=== PATIENT | male | born 1965 | race Caucasian/White ===

== ENCOUNTER 2017-06-24 12:22 | Emergency (ER) | payer BC ==
[2017-06-24] MEDS ORDERED: Lidocaine 1% 50 ML MDV INJECT ONE (12:53)
[2017-06-24] MEDS ORDERED: Midazolam 1 MG/ML 2 ML SDV IVPUSH ONE (12:54)
[2017-06-24] MEDS ORDERED: Sodium Chloride 0.9% 10 ML Syringe FLUSH PRN (12:54)
[2017-06-24] MEDS ORDERED: fentaNYL 100 MCG/2 ML SDV IVPUSH ONE (12:54)
--- NOTE | 2017-06-24 13:38 | EDM.PDOC ---
ED HPI GENERAL MEDICAL PROBLEM - General Chief Complaint: ENT Problem Stated Complaint: NOSE INJURY Time Seen by Provider: 06/24/17 12:48 Source of Information: Reports: Patient History Limitations: Reports: No Limitations - History of Present Illness INITIAL COMMENTS - FREE TEXT/NARRATIVE: 51-year-old male presents for evaluation and treatment of a laceration to the nose. Injury occurred about 11 AM. Patient reports he was putting up some lights when he walked into a ceiling panel. Has a laceration to the nasal bridge and along the left side of the nose. approximately 5 cm. Bleeding controlled upon arrival. Reports a burning pain to the nose. No numbness or tingling. Unsure of last tetanus. Nose Pain Score (Numeric/FACES): 2 - Related Data Allergies Allergy/AdvReac Type Severity Reaction Status Date / Time No Known Allergies Allergy Verified 06/24/17 12:33 Home Meds: Home Meds Doxycycline [Vibramycin] 100 mg PO BID #20 cap 06/24/17 [Rx] Past Medical History - Past Surgical History HEENT Surgical History: Reports: Cataract Surgery, Detached Retina Social & Family History - Tobacco Use Smoking Status *Q: Never Smoker Second Hand Smoke Exposure: No - Caffeine Use Caffeine Use: Reports: Coffee, Soda - Recreational Drug Use Recreational Drug Use: No ED ROS ENT - Review of Systems Review Of Systems: See Below HEENT: Reports: Nosebleed, Other (facial pain) Skin: Reports: Wound (5cm ) Neurological: Denies: Numbness, Tingling ED EXAM, ENT - Physical Exam Exam: See Below Exam Limited By: No Limitations General Appearance: Alert, WD/WN, Anxious, Mild Distress Eye Exam: Bilateral Eye: Normal Inspection, PERRL Ears: Normal External Exam Nose: Nasal Deformity, Dried Blood. No: Septal Hematoma Mouth/Throat: Normal Inspection, Normal Oropharynx Head: Facial Lacerations, Other (5cm laceration to the anterior and left lateral nose) Respiratory/Chest: No Respiratory Distress Neurological: Alert, Oriented, Normal Cognition Psychiatric: Normal Affect, Normal Mood Skin: Warm, Dry, Normal Color ED ENT PROCEDURES - Laceration/Wound Repair Face Lac/wound length in cm: 5 Appearance: Linear Distal NVT: Neuro & Vascular Intact, No Tendon Injury Anesthetic Type: Local Local Anesthesia - Lidocaine (Xylocaine): 1% Plain Local Anesthetic Volume: Other (6cc) Skin Prep: Chlorhexidine (Hibiciens), Saline, Sterile Drape Suture Size: other (5-0) # of Sutures: 22 (7 4-0 and 15 5-0) Suture Type: Nylon, Interrupted, Simple Sterile Dressing Applied: Nurse Tetanus Status Addressed: Yes Complications: None Course - Vital Signs Last Recorded V/S: Last Vital Signs Temp 35.7 C 06/24/17 12:28 Pulse 72 06/24/17 15:54 Resp 18 06/24/17 15:54 BP 109/95 H 06/24/17 15:54 Pulse Ox 98 06/24/17 15:54 - Orders/Labs/Meds Orders: Active Orders 24 hr Category Date Time Status Peripheral IV Care [RC] . DIRECTED Care 06/24/17 12:55 Active Vaccines to be Administered [RC] PER UNIT ROUTINE Care 06/24/17 15:15 Ordered Peripheral IV Insertion Adult [OM.PC] Routine Oth 06/24/17 12:53 Ordered Meds: Medications Discontinued Medications Generic Name Dose Route Start Last Admin Trade Name Juarez PRN Reason Stop Dose Admin Diphtheria/Tetanus/Acell Pertussis 0.5 ml 06/24/17 15:14 06/24/17 15:22 Adacel IM 06/24/17 15:15 0.5 ml .ONCE ONE Administration Diphtheria/Tetanus/Acell Pertussis Confirm 06/24/17 15:22 06/24/17 15:31 Adacel Administered 06/24/17 15:23 Not Given Dose 0.5 ml .ROUTE .STK-MED ONE Fentanyl 50 mcg 06/24/17 12:54 06/24/17 13:08 Sublimaze IVPUSH 06/24/17 12:55 50 mcg ONETIME ONE Administration Fentanyl Confirm 06/24/17 13:52 06/24/17 15:09 Sublimaze Administered 06/24/17 13:53 Not Given Dose 100 mcg .ROUTE .STK-MED ONE Fentanyl 50 mcg 06/24/17 15:09 06/24/17 13:35 Sublimaze IVPUSH 06/24/17 15:10 50 mcg ONETIME STA Administration Fentanyl 50 mcg 06/24/17 15:30 06/24/17 15:31 Sublimaze IVPUSH 06/24/17 15:31 50 mcg ONETIME STA Administration Lidocaine HCl 50 ml 06/24/17 12:53 06/24/17 13:45 Xylocaine 1% INJECT 06/24/17 12:54 50 ml ONETIME ONE Administration Midazolam HCl 2 mg 06/24/17 12:54 06/24/17 13:31 Versed 1 Mg/Ml IVPUSH 06/24/17 12:55 2 mg ONETIME ONE Administration Midazolam HCl Confirm 06/24/17 13:52 06/24/17 15:09 Versed 1 Mg/Ml Administered 06/24/17 13:53 Not Given Dose 2 mg .ROUTE .STK-MED ONE Sodium Chloride 10 ml 06/24/17 12:54 06/24/17 13:09 Saline Flush FLUSH 10 ml ASDIRECTED PRN Administration Keep Vein Open - Re-Assessments/Exams Free Text/Narrative Re-Assessment/Exam: 06/24/17 15:[address] Hall to come and see the patient. He has Seen and evaluated the patient. We discussed laceration repair. Dr. Hall recommended using a combination of 4-0 Ethilon and 5-0 Ethilon. Advised against subcutaneous sutures as this will likely cause worsening deformity to the area. Recommend antibiotics. We will update his tetanus. I placed 22 sutures total to the nose. Patient tolerated the procedure relatively well. Difficulty obtaining adequate anesthesia with the lidocaine. I did give him a combination of fentanyl and Versed to help with the pain and relaxation. The laceration came together well. He had 7 sutures of 4-0 Ethilon and 15 sutures of 5-0 Ethilon. The color to his nose improved afterwards. Reports soreness to the nose. Will discharge him home with doxycycline twice a day. Discharge instructions as documented. Departure - Departure Time of Disposition: 15:04 Disposition: Home, Self-Care 01 Condition: Fair Clinical Impression: Laceration - Discharge Information Prescriptions: Doxycycline [Vibramycin] 100 mg PO BID #20 cap Instructions: Laceration Care, Adult Referrals: PCP,None [Primary Care Provider] - Anuja Dove PA-C [[employer]] - Forms: ED Department Discharge Additional Instructions: Wash the wound with gentle soap and water twice a day. Apply Neosporin or bacitracin to the wound. Keep the wound covered when you're going to be in areas where it could become dirty. Otherwise open to air. Doxycycline 1 tab twice a day for 10 days. Take this medication with food. Avoid the sun as this medication as does cause photosensitivity. Monitor for signs of infection such as increased swelling, pus or redness. Present to the clinic or the ER should these develop. Have the sutures removed in [address] [facility] clinic located on the side of the hospital is open 8 AM to 5 PM Wednesday through Wednesday and will remove the sutures for free. Recommend Anuja Dove. Call [phone] to schedule with her. Please return to the ER if your symptoms change or worsen. - My Orders Last 24 Hours: My Active Orders 06/24/17 12:53 Peripheral IV Insertion Adult [OM.PC] Routine 06/24/17 12:55 Peripheral IV Care [RC] . DIRECTED 06/24/17 15:15 Vaccines to be Administered [RC] PER UNIT ROUTINE - Assessment/Plan Last 24 Hours: My Active Orders 06/24/17 12:53 Peripheral IV Insertion Adult [OM.PC] Routine 06/24/17 12:55 Peripheral IV Care [RC] . DIRECTED 06/24/17 15:15 Vaccines to be Administered [RC] PER UNIT ROUTINE
[2017-06-24] MEDS ORDERED: Midazolam 1 MG/ML 2 ML SDV ONE (13:52)
[2017-06-24] MEDS ORDERED: fentaNYL 100 MCG/2 ML SDV ONE (13:52)
[2017-06-24] MEDS ORDERED: fentaNYL 100 MCG/2 ML SDV IVPUSH STA ×2 (15:09→15:30)
[2017-06-24] MEDS ORDERED: Diphtheria,Pertussis(Acell),Tetanus Vaccine 0.5 ML SDV IM ONE (15:14)
[2017-06-24] MEDS ORDERED: Diphtheria,Pertussis(Acell),Tetanus Vaccine 0.5 ML SDV ONE (15:22)
== END 2017-06-24 15:50 | disposition home or self-care (01) ==
LOC: JD.ED 12:22
DX: S01.21XA Laceration without foreign body of nose, initial encounter (principal); Z79.899 Other long term (current) drug therapy; Z23 Encounter for immunization; W26.8XXA Contact with other sharp object(s), not elsewhere classified, initial encounter
CPT/HCPCS: 12013; 90471; 90715; 96374; 96375; 96376; 99283; J2250; J3010; J7050; 99284-25

== ENCOUNTER 2020-02-26 08:11 | Day surgery (SDC) | payer BC ==
[~2020-02-26 08:11] MED LIST: Acetaminophen 325 MG Tab PO SCH; Ketamine 500 mg/10 ML MDV ONE; Ketorolac 30 MG/ML SDV ONE; Lactated Ringers 1,000 ML IV SCH; Lactated Ringers 2,000 ML ONE; Lidocaine 1% 4 ML ONE; Lidocaine 1%/Sod Bicarbonate in NS 8.4% 1 ML Syringe IDERM PRN; Midazolam 1 MG/ML 2 ML SDV ONE; Morphine 8 MG, EPINEPHrine 0.3 MG, Cefuroxime 750 MG, Ketorolac 30 MG, Sodium Chloride ... PRN; Ondansetron 4 MG/2 ML SDV ONE; Pregabalin 25 MG Cap PO SCH; Propofol 200 MG/20 ML SDV ONE; Sodium Chloride 0.9% 10 ML Syringe FLUSH PRN; fentaNYL 100 MCG/2 ML SDV ONE; oxyCODONE ER 10 MG TAB.ER PO SCH
--- NOTE | 2020-02-26 09:20 | PCM.PREANE ---
Preanesthetic Assessment - Procedure Proposed Procedure: Right Total Hip Arthroplasty - Anesthesia/Transfusion/Family Hx Anesthesia History: Prior Anesthesia Reaction Type of Anesthesia Reaction: Excessive Nausea/Vomiting (Eye surgery) Family History of Anesthesia Reaction: No - Review of Systems General: No Symptoms Pulmonary: No Symptoms Cardiovascular: No Symptoms Gastrointestinal: No Symptoms Neurological: Pre-Existing Deficit (Chronic back pain, epidural steroid injections a couple of times a year for management. Degenerative Disc Disease. Denies numbness/tingling lower extremities. Worse on right side due to hip pain. ) Other: Reports: None - Physical Assessment NPO Status Date: 02/25/20 NPO Status Time: 21:30 Vital Signs: Last Vital Signs Temp 36.2 C 02/26/20 07:55 Pulse 55 L 02/26/20 07:55 Resp 16 02/26/20 07:55 BP 143/95 H 02/26/20 07:55 Pulse Ox 96 02/26/20 07:55 Height: 1.8 m Weight: 102.965 kg ASA Class: 2 Mental Status: Alert & Oriented x3 Airway Class: Mallampati = 2 Dentition: Reports: Normal Dentition Thyro-Mental Finger Breadths: 3 Mouth Opening Finger Breadths: 3 ROM/Head Extension: Full Lungs: Clear to Auscultation, Normal Respiratory Effort Cardiovascular: Regular Rhythm, Bradycardia - Lab Values: Laboratory Last Values MRSA (PCR) Negative 02/14/20 14:21 - Allergies Allergies/Adverse Reactions: Allergies Allergy/AdvReac Type Severity Reaction Status Date / Time No Known Allergies Allergy Verified 02/25/20 09:10 - Anesthesia Plan Pre-Op Medication Ordered: Anxiolytic, Other (Scopalamine Patch) - Acknowledgements Anesthesia Type Planned: Spinal Pt an Appropriate Candidate for the Planned Anesthesia: Yes Alternatives and Risks of Anesthesia Discussed w Pt/Guardian: Yes Pt/Guardian Understands and Agrees with Anesthesia Plan: Yes PreAnesthesia Questionnaire HEENT History: Reports: Impaired Vision, Other (See Below) Other HEENT History: wears glasses/contacts Cardiovascular History: Reports: None Respiratory History: Reports: None Gastrointestinal History: Reports: None Genitourinary History: Reports: None CRANE HOOKER History: Reports: None Musculoskeletal History: Reports: Other (See Below) Other Musculoskeletal History: right hip degenerative joint disease, foot pain, hamstring tightness, low back pain, right hip and knee pain Neurological History: Reports: None Psychiatric History: Reports: None Endocrine/Metabolic History: Reports: None Hematologic History: Reports: None Immunologic History: Reports: None - Infectious Disease History Infectious Disease History: Reports: None - Past Surgical History Head Surgeries/Procedures: Reports: None HEENT Surgical History: Reports: Cataract Surgery, Detached Retina Cardiovascular Surgical History: Reports: None Respiratory Surgical History: Reports: None GI Surgical History: Reports: Colonoscopy Female Surgical History: Reports: None Male Surgical History: Reports: None Endocrine Surgical History: Reports: None Neurological Surgical History: Reports: None Musculoskeletal Surgical History: Reports: None Oncologic Surgical History: Reports: None Dermatological Surgical History: Reports: None - SUBSTANCE USE Tobacco Use Status *Q: Former Tobacco User Days Per Week of Alcohol Use: 7 Number of Drinks Per Day: 1 Total Drinks Per Week: 7 Recreational Drug Use History: No - HOME MEDS Home Medications: Home Meds Cholecalciferol (Vitamin D3) [Vitamin D3] 5,000 unit PO DAILY 02/25/20 [History] Multivitamin [Daily Multiple Vitamin] 1 tab PO DAILY 02/25/20 [History] Aspirin [Aspirin EC] 325 mg PO BID #70 tab 02/26/20 [Rx] Cyclobenzaprine [Flexeril] 10 mg PO BID PRN #20 tab 02/26/20 [Rx] oxyCODONE 5 - 10 mg PO Q4H PRN #40 tab 02/26/20 [Rx] - CURRENT (IN HOUSE) MEDS Current Meds: Current Medications Acetaminophen (Tylenol) 975 mg PO ONETIME LUISITO Stop: 02/26/20 12:00 Last Admin: 02/26/20 08:26 Dose: 975 mg Documented by: Morphine Sulfate 8 mg/Epinephrine HCl 0.3 mg/Cefuroxime Sodium 750 mg/Ketorolac Tromethamine 30 mg/Sodium Chloride 7.9 ml 0 mg .XX ASDIRECTED PRN PRN Reason: Pain Stop: 02/26/20 12:00 Lactated Ringer's (Ringers, Lactated) 1,000 mls @ 125 mls/hr IV ASDIRECTED LUISITO Stop: 02/26/20 23:00 Last Admin: 02/26/20 08:20 Dose: 125 mls/hr Documented by: Lidocaine/Sodium Bicarbonate (Buffered Lidocaine 1% In Ns 8.4%) 0.25 ml IDERM ONETIME PRN PRN Reason: Prior to IV Start Stop: 02/26/20 18:00 Last Admin: 02/26/20 08:19 Dose: 0.25 ml Documented by: Oxycodone HCl (Oxycontin) 10 mg PO ONETIME LUISITO Stop: 02/26/20 12:00 Last Admin: 02/26/20 08:26 Dose: 10 mg Documented by: Pregabalin (Lyrica) 50 mg PO ONETIME LUISITO Stop: 02/26/20 12:00 Last Admin: 02/26/20 08:26 Dose: 50 mg Documented by: Scopolamine (Transderm-Scop) 1.5 mg TOP ONETIME ONE Stop: 02/26/20 09:14 Sodium Chloride (Saline Flush) 10 ml FLUSH ASDIRECTED PRN PRN Reason: Keep Vein Open Stop: 02/26/20 18:00 Discontinued Medications Bupivacaine HCl (Sensorcaine-Mpf 0.25%) Confirm Administered Dose 30 ml .ROUTE .STK-MED ONE Stop: 02/26/20 08:26 Fentanyl (Sublimaze) Confirm Administered Dose 100 mcg .ROUTE .STK-MED ONE Stop: 02/26/20 07:49 Lidocaine HCl (Xylocaine-Mpf 1%) Confirm Administered Dose 4 mls @ as directed .ROUTE .STK-MED ONE Stop: 02/26/20 07:48 Lactated Ringer's (Ringers, Lactated) Confirm Administered Dose 2,000 mls @ as directed .ROUTE .STK-MED ONE Stop: 02/26/20 07:48 Ketamine HCl (Ketalar) Confirm Administered Dose 500 mg .ROUTE .STK-MED ONE Stop: 02/26/20 07:50 Ketorolac Tromethamine (Toradol) Confirm Administered Dose 30 mg .ROUTE .STK-MED ONE Stop: 02/26/20 07:48 Midazolam HCl (Versed 1 Mg/Ml) Confirm Administered Dose 2 mg .ROUTE .STK-MED ONE Stop: 02/26/20 07:50 Miscellaneous Medication (Phenylephrine 1 Mg/10 Ml-Ns) Confirm Administered Dose 1 mg .ROUTE .STK-MED ONE Stop: 02/26/20 07:48 Ondansetron HCl (Zofran) Confirm Administered Dose 4 mg .ROUTE .STK-MED ONE Stop: 02/26/20 07:48 Propofol (Diprivan 20 Ml) Confirm Administered Dose 400 mg .ROUTE .STK-MED ONE Stop: 02/26/20 07:48 Tranexamic Acid (Cyklokapron) Confirm Administered Dose 1,000 mg .ROUTE .STK-MED ONE Stop: 02/26/20 08:26 Vancomycin HCl (Vancomycin) Confirm Administered Dose 1 gm .ROUTE .STK-MED ONE Stop: 02/26/20 08:26
[2020-02-26] MEDS ORDERED: Scopolamine 1.5 MG Transdermal Patch TOP ONE (10:00)
[2020-02-26] MEDS ORDERED: diphenhydrAMINE 50 MG/ML SDV IVPUSH PRN (10:02)
[2020-02-26] MEDS ORDERED: fentaNYL 100 MCG/2 ML SDV IVPUSH PRN (10:02)
[2020-02-26] MEDS ORDERED: ePHEDrine 50 MG/ML SDV IVPUSH PRN (10:02)
[2020-02-26] MEDS ORDERED: Ondansetron 4 MG/2 ML SDV IVPUSH PRN (10:02)
[2020-02-26] MEDS ORDERED: HYDROmorphone 0.5 MG/0.5 ML Syringe IVPUSH PRN (10:03)
[2020-02-26] MEDS ORDERED: ePHEDrine 50 MG/ML SDV ONE (10:14)
[2020-02-26] MEDS: Morphine 8 MG, EPINEPHrine 0.3 MG, Cefuroxime 750 MG, Ketorolac 30 MG, Sodium Chloride ... PRN ×10 (10:19→10:46)
[2020-02-26] MEDS: Bupivacaine 0.25% 10 ML SDV ONE ×2 (10:19→10:44)
[2020-02-26] MEDS: Vancomycin 1 GM SDV ONE ×2 (10:20→10:48)
[2020-02-26] MEDS ORDERED: Propofol 200 MG/20 ML SDV ONE (10:38)
--- NOTE | 2020-02-26 11:22 | PCM.POSTAN ---
POST ANESTHESIA ASSESSMENT - MENTAL STATUS Mental Status: Alert - VITAL SIGNS Vital Signs: Last Vital Signs Temp 97.9 02/26/20 1115 Pulse 60 02/26/20 1115 Resp 10 02/26/20 1115 BP 97/68 02/26/20 1115 Pulse Ox 96% 02/26/20 1115 - RESPIRATORY Respiratory Status: Respiratory Rate WNL, Airway Patent, O2 Saturation Stable, Supplemental Oxygen - CARDIOVASCULAR CV Status: Pulse Rate WNL, Blood Pressure Stable - GASTROINTESTINAL GI Status: No Symptoms - POST OP HYDRATION Hydration Status: Adequate & Stable
[2020-02-26] MEDS ORDERED: oxyCODONE 5 MG Tab PO PRN (11:47)
[2020-02-26] MEDS ORDERED: Cyclobenzaprine 10 MG Tab PO PRN (12:07)
--- NOTE | 2020-02-26 13:40 | PCM48HPAN ---
Post Anesthesia Note - EVALUATION WITHIN 48HRS OF ANESTHETIC Vital Signs in Normal Range: Yes Patient Participated in Evaluation: Yes Respiratory Function Stable: Yes Airway Patent: Yes Cardiovascular Function Stable: Yes Hydration Status Stable: Yes Pain Control Satisfactory: Yes Nausea and Vomiting Control Satisfactory: Yes Mental Status Recovered: Yes Vital Signs: Last Vital Signs Temp 36.7 C 02/26/20 12:15 Pulse 62 02/26/20 13:00 Resp 16 02/26/20 13:00 BP 120/75 02/26/20 13:00 Pulse Ox 97 02/26/20 13:00
--- NOTE | 2020-02-26 14:13 | CR ---
PROCEDURE INFORMATION: Exam: XR Pelvis Exam date and time: 02/26/2020 11:12 AM Age: 54 years old Clinical indication: Device placement; Other: Right hip replacement; Prior surgery; Surgery date: Post-operative (0-2 days) TECHNIQUE: Imaging protocol: XR pelvis. Views: 1 or 2 view. COMPARISON: FL Pelvis 1V or 2V 10/18/2019 10:40 AM FINDINGS: Bones/joints: Status post right total hip replacement without evidence of complications. Soft tissues: There are no soft tissue masses or fluid collections. IMPRESSION: Status post right total hip replacement without evidence of complications. Thank you for allowing us to participate in the care of your patient. Dictated and Authenticated by: Jorje Yarbrough DO 02/26/2020 2:33 PM Central Time ([place] & [place]) TESSIE
--- NOTE | 2020-03-08 13:10 | PCM.OPNOTE ---
- General Post-Op/Procedure Note Date of Surgery/Procedure: 02/26/20 Operative Procedure(s): right total hip arthroplasty Pre Op Diagnosis: right hip osteoarthrosis Post-Op Diagnosis: Same Anesthesia Technique: Local, MAC, Spinal Primary Surgeon: Martinez Miranda Anesthesia Provider: Maria C Cespedes Dive Superintendent: Pricilla Rivera Dive Superintendent: Zohra Tomlinson EBL in mLs: 150 Complications: None Condition: Good Free Text/Narrative:: 58 cup 4 stem 28+0 MDM
--- NOTE | 2020-03-08 13:49 | OR ---
DATE OF OPERATION: 02/26/2020 SURGEON: Martinez Miranda MD OPERATION PERFORMED: Right total hip arthroplasty. PREOPERATIVE DIAGNOSIS: Right hip osteoarthrosis. POSTOPERATIVE DIAGNOSIS: Right hip osteoarthrosis. ANESTHESIA: Local MAC with spinal. ANESTHESIA PROVIDER: Maria C Cespedes CRNA. ASSISTANTS: Pricilla Rivera PA-C and Zohra Tomlinson LPN. ESTIMATED BLOOD LOSS: 150 mL. COMPLICATIONS: None. CONDITION: Stable. IMPLANT: 1. Monroe size 58 mm solid Tritanium II acetabular cup. 2. Monroe size 28/42 MDM components +0. 3. Monroe size 4 Accolade II stem. DESCRIPTION OF PROCEDURE: The patient was identified in the preoperative holding area. Proper site was marked and identified by the surgeon. The patient was taken back to the operating theater, where after adequate anesthesia, the patient was placed in a left lateral decubitus position. Axillary roll was placed, pegs were then placed and they were well padded. The patient's gluteal fold was parallel to the floor. At this time, right hip was then sterilely prepped and draped in the usual sterile fashion. OR time-out was performed. The patient received 2 g IV Ancef. Standard posterior incision was made, centered over the greater trochanter. This was taken down to the IT band and gluteal fascia, which was incised along the incisional length. Charnley retractor was then placed and found to be in adequate position. Short external rotators were identified and takedown of short external rotators was done from the level of the piriformis down to the lesser trochanter. Hip was then dislocated and neck cut was completed and found to be adequate. Anterior and posterior acetabular retractors were then placed and circumferential removal of the labrum as well as any bony prominences were then done. Pulvinar was then resected. Starting with a 52 reamer, I was then able to ream up to a size 58, which was found to have adequate purchase. A 58 mm Tritanium II acetabular cup was then impacted in place and roughly 45 degrees of abduction and 20 to 30 degrees of anteversion. MDM liner was then impacted in place and was and found to be properly seated. At this time, attention was turned to the femur. Box chisel was used out laterally. Starter awl was placed down the canal. Starting with a 0 broach, I was able to broach up to a size 4 which was found to be rotationally and vertically stable. Trial neck at 127 degrees +0 implants were trialed. The patient had adequate religion of leg lengths and was stable throughout the range of motion. Bone hook was used to dislocate the trial implants. The size 4 Accolade II stem was then impacted in place and the 28 mm, +0 MDM components were constructed on the back table and impacted onto the femoral stem. Hip was then relocated and was stable throughout range of motion. A #5 Ethibond was used for closure of short external rotators and capsule. 1 L of pulse lavage irrigation with Ancef was irrigated through the hip along with Irrisept irrigation. Topical tranexamic acid and vancomycin powder were applied along with periarticular injection. A #2 barbed suture was used for closure of the IT band and gluteal fascia. A 2-0 Vicryl was used subcutaneously, Prineo was used for the skin. The patient tolerated the procedure well and sent to PACU in stable condition. MMODAL /[id number]
== END 2020-02-26 15:02 | disposition home or self-care (01) ==
LOC: JD.SDS 08:11 → EDSTATUS 09:15 → JD.SDS 15:02
PROVIDERS: ATTEND Orthopaedic Surgery
DX: M16.11 Unilateral primary osteoarthritis, right hip (principal); E78.00 Pure hypercholesterolemia, unspecified; Z98.890 Other specified postprocedural states; Z87.891 Personal history of nicotine dependence; Z79.899 Other long term (current) drug therapy; Z79.82 Long term (current) use of aspirin
CPT/HCPCS: 27130; 36415; 73501; 86850; 86900; 86901; 87641; 97110; 97116; 97161; 97165; 97530; A9270; C1776; J0171; J0697; J1885; J2001; J2250; J2270; J2405; J2704; J3010; J3370; J3490; J7120; 01214; J2370

== ENCOUNTER 2020-03-23 12:09 | Emergency (ER) | payer BC ==
--- NOTE | 2020-03-23 12:36 | EDM.PDOC ---
ED HPI GENERAL MEDICAL PROBLEM - General Chief Complaint: Genitourinary Problem Stated Complaint: UNABLE TO URINATE Time Seen by Provider: 03/23/20 12:26 - History of Present Illness INITIAL COMMENTS - FREE TEXT/NARRATIVE: 54-year-old male presents to the emergency room with urinary difficulties. Late last night he developed some burning and frequency with urination. This is progressively getting worse now he just goes very small amounts very frequently and it is very uncomfortable he does not feel like he empties all the way. He has not had any fevers or chills she is not had any nausea or vomiting. Patient thought he was developing some constipation but had a large BM yesterday. Patient does not have a history of recurrent UTIs.. The patient had a hip replacement done little over a month ago however did not have a Fisher catheter placed. - Related Data Allergies Allergy/AdvReac Type Severity Reaction Status Date / Time No Known Allergies Allergy Verified 03/23/20 12:18 Home Meds: Home Meds Cholecalciferol (Vitamin D3) [Vitamin D3] 5,000 unit PO DAILY 02/25/20 [History] Multivitamin [Daily Multiple Vitamin] 1 tab PO DAILY 02/25/20 [History] Aspirin [Aspirin EC] 325 mg PO BID #70 tab 02/26/20 [Rx] Cefdinir [Omnicef] 300 mg PO BID #14 cap 03/23/20 [Rx] Past Medical History HEENT History: Reports: Impaired Vision, Other (See Below) Other HEENT History: wears glasses/contacts Cardiovascular History: Reports: None Respiratory History: Reports: None Gastrointestinal History: Reports: None Genitourinary History: Reports: None [employer] History: Reports: None Musculoskeletal History: Reports: Other (See Below) Other Musculoskeletal History: right hip degenerative joint disease, foot pain, hamstring tightness, low back pain, right hip and knee pain Neurological History: Reports: None Psychiatric History: Reports: None Endocrine/Metabolic History: Reports: None Hematologic History: Reports: None Immunologic History: Reports: None - Infectious Disease History Infectious Disease History: Reports: None - Past Surgical History Head Surgeries/Procedures: Reports: None HEENT Surgical History: Reports: Cataract Surgery, Detached Retina Cardiovascular Surgical History: Reports: None Respiratory Surgical History: Reports: None GI Surgical History: Reports: Colonoscopy Male Surgical History: Reports: None Endocrine Surgical History: Reports: None Neurological Surgical History: Reports: None Musculoskeletal Surgical History: Reports: Hip Replacement Other Musculoskeletal Surgeries/Procedures:: right hip Oncologic Surgical History: Reports: None Dermatological Surgical History: Reports: None Social & Family History - Tobacco Use Tobacco Use Status *Q: Former Tobacco User Used Tobacco, but Quit: Yes Month/Year Tobacco Last Used: 8 years ago - Caffeine Use Caffeine Use: Reports: None - Recreational Drug Use Recreational Drug Use: No ED ROS GENERAL - Review of Systems Review Of Systems: See Below Constitutional: Reports: No Symptoms. Denies: Fever, Chills Respiratory: Reports: No Symptoms Cardiovascular: Reports: No Symptoms Endocrine: Reports: No Symptoms GI/Abdominal: Reports: No Symptoms : Reports: Dysuria, Other (Some midline low back pain but this is chronic). Denies: Flank Pain Musculoskeletal: Reports: Back Pain ED EXAM, RENAL/ - Physical Exam Exam: See Below Exam Limited By: No Limitations General Appearance: Alert, No Apparent Distress Head: Atraumatic, Normocephalic Neck: Normal Inspection, Supple, Non-Tender, Full Range of Motion Respiratory/Chest: No Respiratory Distress, Lungs Clear, Normal Breath Sounds Cardiovascular: Regular Rate, Rhythm, No Edema, No Murmur GI/Abdominal: Normal Bowel Sounds, Soft, Non-Tender Back Exam: Other (He has some vague lower back pain in the midline the patient has chronic back pain and this is not much different). No: CVA Tenderness (L), CVA Tenderness (R) Neurological: Alert, Oriented, Normal Cognition Course - Vital Signs Last Recorded V/S: Last Vital Signs Temp 36.9 C 03/23/20 12:16 Pulse 109 H 03/23/20 12:16 Resp 16 03/23/20 12:16 BP 164/95 H 03/23/20 12:16 Pulse Ox 96 03/23/20 12:16 - Orders/Labs/Meds Orders: Active Orders 24 hr Category Date Time Status CULTURE URINE [RM] Stat Lab 03/23/20 12:15 Received Labs: Laboratory Tests 03/23/20 Range/Units 12:15 Urine Color Brown H (Yellow) Urine Appearance Cloudy H (Clear) Urine pH 6.5 (5.0-8.0) Ur Specific [place] 1.025 (1.005-1.030) Urine Protein 3+ H (Negative) Urine Glucose (UA) Negative (Negative) Urine Ketones 1+ H (Negative) Urine Occult Blood 3+ H (Negative) Urine Nitrite Positive H (Negative) Urine Bilirubin 2+ H (Negative) Urine Urobilinogen 1.0 (0.2-1.0) Ur Leukocyte Esterase 3+ H (Negative) U Hyaline Cast (Auto) 5-10 H (0-5) /lpf Urine RBC Too numerous to cnt H (0-5) /hpf Urine WBC Too numerous to cnt H (0-5) /hpf Ur Epithelial Cells 0-5 (0-5) /hpf Urine Bacteria Moderate H (FEW) /hpf Fine Granular Casts 0-5 (0-5) /lpf Urine Mucus Not seen (FEW) /hpf Urine Yeast Few H (NOT SEEN) Urinalysis Comment Meds: Medications Discontinued Medications Generic Name Dose Route Start Last Admin Trade Name Freq PRN Reason Stop Dose Admin Cefdinir 300 mg 03/23/20 13:13 Omnicef PO 03/23/20 13:14 ONETIME ONE - Re-Assessments/Exams Free Text/Narrative Re-Assessment/Exam: 03/23/20 13:26 Bladder scan shows no residual. Urinalysis is very suspicious for urinary tract infection we will start him on Omnicef 300 mg twice a day, first dose given here in the emergency room. Departure - Departure Time of Disposition: 13:27 Disposition: Home, Self-Care 01 Clinical Impression: UTI, Urinary tract infectious disease - Discharge Information Referrals: Margarita Espinal, [employer] [Primary Care Provider] - Forms: ED Department Discharge Additional Instructions: Return to the emergency room with any questions problems or worsening symptoms. You will be started on an antibiotic for your bladder infection. This is electronically sent to [facility] [place] [facility]. Take 1 twice daily until all gone. Push lots of fluids. Follow-up with your regular healthcare provider 3 to 4 days after finishing the antibiotics. Sepsis Event Note (ED) - Evaluation Sepsis Screening Result: No Definite Risk - Focused Exam Vital Signs: Vital Signs Temp Pulse Resp BP Pulse Ox 03/23/20 12:16 36.9 C 109 H 16 164/95 H 96 - My Orders Last 24 Hours: My Active Orders 03/23/20 12:15 CULTURE URINE [RM] Stat - Assessment/Plan Last 24 Hours: My Active Orders 03/23/20 12:15 CULTURE URINE [RM] Stat
[2020-03-23] MEDS ORDERED: Cefdinir 300 MG Cap PO ONE (13:13)
== END 2020-03-23 13:45 | disposition home or self-care (01) ==
LOC: JD.ED 12:09
DX: N39.0 Urinary tract infection, site not specified (principal); Z79.82 Long term (current) use of aspirin; Z87.891 Personal history of nicotine dependence
CPT/HCPCS: 51798; 81001; 87086; 87088; 87186; 99283; A9270